=== PATIENT | male | born 1970 | race African-American/Black ===

== ENCOUNTER 2024-10-26 07:41 | Inpatient (IN) | payer MEDICAID, OTHER ==
[~2024-10-26] VITALS: Ht 182.9 cm; Wt 69.5 kg
--- NOTE | 2024-10-26 07:56 | ED.PDOC ---
History of Present Illness HPI Comments 54-year-old male brought by paramedics because of bright red blood per rectum he noticed since yesterday. He states that he had similar symptom five years ago for which she was diagnosed with diverticulitis. Denies abdominal pain nausea vomiting. Painless rectal bleeding. History of hypertension for which he takes amlodipine. Vitals stable upon arrival. Denies any other symptoms. Chief Complaint: GI Bleed Time Seen by MD: 07:45 Primary Care Provider: JESI GRANT Reviewed Notes: Nurses Notes, Medications, Allergies Allergies: Coded Allergies: NO KNOWN ALLERGIES (Unverified , 02/24/17) Home Meds No Active Prescriptions or Reported Meds Information Source: Patient, Emergency Med Personnel Mode of Arrival: EMS Severity: Moderate Timing: Days Duration: Since onset Past Medical History PAST MEDICAL HISTORY: HTN Surgical History: Denies all surgeries Social History Smoker: Non-Smoker Alcohol: Denies ETOH Use Drugs: Denies Drug Use Constitutional: denies: chills, diaphoresis, fatigue, fever, malaise, sweats, weakness, others EENTM: denies: blurred vision, double vision, ear bleeding, ear discharge, ear drainage, ear pain, ear ringing, eye pain, eye redness, hearing loss, mouth pain, mouth swelling, nasal discharge, nose bleeding, nose congestion, nose pain, photophobia, tearing, throat pain, throat swelling, voice changes, others Respiratory: denies: cough, hemoptysis, orthopnea, SOB at rest, shortness of breath, SOB with excertion, stridor, wheezing, others Cardiovascular: denies: chest pain, dizzy spells, diaphoresis, Dyspnea on exertion, edema, irregular heart beat, left arm pain, lightheadedness, palpitations, PND, syncope, others Gastrointestinal: reports: rectal bleeding; denies: abdomen distended, abdominal pain, blood streaked bowels, constipated, diarrhea, dysphagia, difficulty swallowing, hematemesis, melena, nausea, poor appetite, poor fluid intake, rectal pain, vomiting, others Genitourinary: denies: burning, dysuria, flank pain, frequency, hematuria, incontinence, penile discharge, penile sore, pain, testicle pain, testicle swelling, urgency, others Neurological: denies: dizziness, fainting, headache, left sided numbness, left sided weakness, numbness, paresthesia, pre-existing deficit, right sided numbness, right sided weakness, seizure, speech problems, tingling, tremors, weakness, others Musculoskeletal: denies: back pain, gout, joint pain, joint swelling, muscle pain, muscle stiffness, neck pain, others Integumetry: denies: bruises, change in color, change in hair/nails, dryness, laceration, lesions, lumps, rash, wounds, others Allergic/Immunocompromised: denies: Difficulty Healing, Frequent Infections, Hives, Itching, others Hematologic/Lymphatic: denies: anemia, blood clots, easy bleeding, easy bruising, swollen glands, others Endocrine: denies: excessive hunger, excessive sweating, excessive thirst, excessive urination, flushing, intolerance to cold, intolerance to heat, unexplained weight gain, unexplained weight loss, others Psychiatric: denies: anxiety, bipolar disorder, depression, hopeless, panic disorder, schizophrenia, sleepless, suicidal, others Physical Exam General Appearance: Moderate Distress HEENT: Normal ENT Inspection, Pharynx Normal, TMs Normal Neck: Full Range of Motion, Non-Tender, Normal, Normal Inspection Respiratory: Chest Non-Tender, Lungs Clear, No Accessory Muscle Use, No Respiratory Distress, Normal Breath Sounds Cardiovascular: No Edema, No JVD, No Murmur, No Gallop, Normal Peripheral Pulses, Regular Rate/Rhythm Breast Exam: Deferred Gastrointestinal: No Organomegaly, Non Tender, No Pulsatile Mass, Normal Bowel Sounds, Soft Genitalia: Deferred Pelvic: Deferred Rectal: Deferred Extremities: No calf tenderness, Normal capillary refill, Normal inspection, Normal range of motion, Non-tender, No pedal edema Musculoskeletal : Apperance: Normal Neurologic: Alert, advanced developer II-XII nml as Tested, No Motor Deficits, Normal Affect, Normal Mood, No Sensory Deficits Cerebellar Function: NOT DONE Reflexes: NOT DONE Skin: Dry, Normal Color, Warm Peripheral Pulses: 3+ Radial (R), 3+ Radial (L) Lymphatic: No Adenopathy Was a procedure done? Was a procedure done?: No Differential Dx Considerations may include: Diverticulitis Hemorrhoid X-Ray, Labs, Meds, VS Vital Signs Date Time Temp Pulse Resp B/P (MAP) Pulse Ox O2 Delivery O2 Flow Rate FiO2 10/26/24 08:12 97.7 113 17 148/86 (106) 99 97.7 5/11/25 08:12 Room Air* 0 21 10/26/24 07:42 97.7 108 16 114/79 (91) 100 97.7 Lab Test 10/26/24 07:55 Range/Units White Blood Count 6.8 4.4-10.8 10^3/uL Red Blood Count 2.56 L 4.5-5.90 10^6/uL Hemoglobin 9.2 L 13.5-17.5 g/dL Hematocrit 26.6 L 41.0-53.0 % Mean Corpuscular Volume 103.6 H 80.0-100.0 fL Mean Corpuscular Hemoglobin 35.7 H 28.0-32.0 pg Mean Corpuscular Hemoglobin Concent 34.5 32.0-36.0 g/dL Red Cell Distribution Width 12.0 11.8-14.3 % Platelet Count 273 140-450 10^3/uL Mean Platelet Volume 6.4 L 6.9-10.8 fL Neutrophils (%) (Auto) 60.7 37.0-80.0 % Lymphocytes (%) (Auto) 26.7 10.0-50.0 % Monocytes (%) (Auto) 9.6 0.0-12.0 % Eosinophils (%) (Auto) 1.9 0.0-7.0 % Basophils (%) (Auto) 1.1 0.0-2.0 % Neutrophils # (Auto) 4.1 1.6-8.6 10 ^3/uL Lymphocytes # (Auto) 1.8 0.4-5.4 10 ^3/uL Monocytes # (Auto) 0.7 0-1.3 10 ^3/uL Eosinophils # (Auto) 0.1 0-0.8 10 ^3/uL Basophils # (Auto) 0.1 0-0.2 10 ^3/uL Nucleated Red Blood Cells 0.0 % Sodium Level 138 136-145 mmol/L Potassium Level 3.8 3.5-5.1 mmol/L Chloride Level 109 H 98-107 mmol/L Carbon Dioxide Level 26 20-31 mmol/L Anion Gap 3 L 5-15 Blood Urea Nitrogen 7 L 9-23 mg/dL Creatinine 0.80 0.700-1.30 mg/dL Glomerular Filtration Rate Calc 106 >90 mL/min BUN/Creatinine Ratio 8.8 L 10.0-20.0 Serum Glucose 99 74-106 mg/dL Calcium Level 9.2 8.7-10.4 mg/dL Current Medications Medications (Trade) Dose Ordered Sig/Jake Route Start Time Stop Time Status Last Admin Sodium Chloride 1,000 ml @ 1,000 mls/hr Q1H ONCE IV 10/26/24 08:00 10/26/24 08:59 DC 10/26/24 08:25 Patient alert. Complaining of bright red blood per rectum. Vitals stable. Answering questions. History of diverticulitis. Abdomen is soft. No sign of distress. Blood pressure is within normal limits. Possibly will need colonoscopy. GI consultation. Establish intravenous access. Was given fluids. Reviewed his history. Counseled patient on effects of smoking cigarettes for 15 minutes. Explained to the patient. Continue monitoring. [place] [id number] Ph: [phone] DIAGNOSTIC IMAGING Diagnostic Imaging Report : [id number] Signed PATIENT: SAMUEL HARGROVE ACCT: [id number] UNIT: [id number] : 1970 LOC: ER ROOM / BED: / AGE / SEX: 54 / M ADM STATUS: REG ER SERVICE [id number] ORDERING PHYSICIAN: CRISTIAN KANG MD PROCEDURE(s): ABPL - CT AB PEL WO CON-NO ORAL OR IV REASON: diverticulitis ORDER NUMBER(s): [id number], ACCESSION NUMBER(s): [id number] CT CT AB PEL WO CON-NO ORAL OR IV INDICATION: diverticulitis EXAM DATE: 10/26/2024 08:03 AM COMPARISON: None RADIATION DOSE: CTDIvol: 5.93 mGy, DLP: 314.4 mGy*cm PROCEDURE: Helical CT images were obtained of the abdomen and pelvis without IV contrast Sagittal and coronal reconstructions are provided. ORAL CONTRAST: None. ADDITIONAL IMAGES / REFORMATS: None All CT scans at this medical facility are performed using dose modulation techniques as appropriate to a performed exam including the following: Automated exposure control was utilized; adjustment of the MA and/or KV according to patient size; and use of iterative reconstruction technique. FINDINGS: LUNG BASE: Normal. LIVER: Normal. GALLBLADDER AND BILIARY TREE: No calcified gallstones. Normal caliber wall. No intra- or extrahepatic biliary ductal dilation. PANCREAS: Normal. SPLEEN: Normal. BOWEL: Severe colonic diverticulosis with mild pericolonic fat stranding along the descending hemicolon. Tubular appearance of the rectum and sigmoid could be seen with proctitis. Normal appendix. ADRENALS: Normal. KIDNEYS AND URETER: Normal. BLADDER: Normal. REPRODUCTIVE ORGANS: Normal. LYMPH NODES:No lymphadenopathy. PERITONEUM: No ascites or free air. No other fluid collection. VESSELS: Scattered atherosclerotic calcifications are noted. RETROPERITONEUM: Normal. ABDOMINAL WALL: Normal. BONES: Scattered osseous degenerative changes are noted. IMPRESSION: Severe colonic diverticulosis with mild pericolonic fat stranding along the descending hemicolon. Tubular appearance of the rectum and sigmoid could be seen with proctitis. ATED BY: RAMAKRISHNA WELLS MD DICTATED DATE/TIME: 10/26/24834 SIGNED BY: RAMAKRISHNA WELLS MD SIGNED DATE/TIME: 10/26/24834 CC: Time of 1ST Reevaluation: 07:54 Reevaluation 1ST: Unchanged Patient Education/Counseling: Diagnosis, Treatment, Prognosis Family Education/Counseling: No Family Present Departure 1 Departure Time of Disposition: 07:56 Impression: Primary Impression: GI bleed Qualified Codes: K92.2 - Gastrointestinal hemorrhage, unspecified Disposition: 09 ADMITTED INPATIENT Admit to: Med Surg Condition: Guarded e-Prescriptions No Active Prescriptions or Reported Meds Critical Care Note Critical Care Time?: No Stability Stability form required: No Heart Score Heart Score: Heart Score Response (Comments) Value History N/A 0 EKG N/A 0 Age N/A 0 Risk Factors N/A 0 Troponin N/A 0 Total 0 I personally scribed for CRISTIAN KANG MD ([email or web address]) on 10/26/24 at 09:14. Electronically submitted by Barry Tatum ([email or web address]). CRISTIAN KANG MD October 26, 2024 07:56
[2024-10-26] MEDS: SODIUM CHLORIDE 0.9% 1,000 ML IV ONE ×2 (08:00→08:25)
[2024-10-26 08:11] LABS: Basophils # (auto) 0.1 10 ^3/uL (0-0.2); Basophils % (auto) 1.1 % (0.0-2.0); Eosinophils # (auto) 0.1 10 ^3/uL (0-0.8); Eosinophils % (auto) 1.9 % (0.0-7.0); Hematocrit 26.6 % (41.0-53.0); Hemoglobin 9.2 g/dL (13.5-17.5); Lymphocytes # (auto) 1.8 10 ^3/uL (0.4-5.4); Lymphocytes % (auto) 26.7 % (10.0-50.0); Mean Corpuscular Hemoglobin 35.7 pg (28.0-32.0); Mean Corpuscular Hgb Conc. 34.5 g/dL (32.0-36.0); Mean Corpuscular Volume 103.6 fL (80.0-100.0); Monocytes # (auto) 0.7 10 ^3/uL (0-1.3); Monocytes % (auto) 9.6 % (0.0-12.0); Neutrophils # (auto) 4.1 10 ^3/uL (1.6-8.6); Neutrophils % (auto) 60.7 % (37.0-80.0); Platelet Count (auto) 273 10^3/uL (140-450); Red Blood Cells 2.56 10^6/uL (4.5-5.90); White Blood Cell 6.8 10^3/uL (4.4-10.8)
[2024-10-26 08:14] LABS: Potassium 3.8 mmol/L (3.5-5.1); Sodium 138 mmol/L (136-145)
[2024-10-26 08:15] LABS: Anion Gap 3 (5-15); Calcium 9.2 mg/dL (8.7-10.4); Carbon Dioxide 26 mmol/L (20-31)
[2024-10-26 08:17] LABS: Chloride 109 mmol/L (98-107)
[2024-10-26 08:20] LABS: BUN/Creatinine Ratio 8.8 (10.0-20.0); Glucose 99 mg/dL (74-106)
[2024-10-26 08:29] LABS: Blood Urea Nitrogen 7 mg/dL (9-23)
--- NOTE | 2024-10-26 08:37 | DVH ---
CT CT AB PEL WO CON-NO ORAL OR IV INDICATION: diverticulitis EXAM DATE: 10/26/2024 08:03 AM COMPARISON: None RADIATION DOSE: CTDIvol: 5.93 mGy, DLP: 314.4 mGy*cm PROCEDURE: Helical CT images were obtained of the abdomen and pelvis without IV contrast Sagittal and coronal reconstructions are provided. ORAL CONTRAST: None. ADDITIONAL IMAGES / REFORMATS: None All C T scans at this medical facility are performed using dose modulation techniques as appropriate to a p erformed exam including the following: Automated exposure control was utilized; adjustment of the MA and/or KV according to patient size; and use of iterative reconstruction technique. FINDINGS: LUNG BASE: Normal. LIVER: Normal. GALLBLADDER AND BILIARY TREE: No calcified gallstones. Normal caliber wall. No intra- or extrahepatic biliary ductal dilation. PANCREAS: Normal. SPLEEN: Normal. BOWEL: Severe colonic diverticulosis with mild pericolonic fat stranding along the descending hemicol on. Tubular appearance of the rectum and sigmoid could be seen with proctitis. Normal appendix. ADRENALS: Normal. KIDNEYS AND URETER: Normal. BLADDER: Normal. REPRODUCTIVE ORGANS: Normal. LYMPH NODES:No lymphadenopathy. PERITONEUM: No ascites or free air. No other fluid collection. VESSELS: Scattered atherosclerotic calcifications are noted. RETROPERITONEUM: Normal. ABDOMINAL WALL: Normal. BONES: Scattered osseous degenerative changes are noted. IMPRESSION: Severe colonic diverticulosis with mild pericolonic fat stranding along the descending hemicolon. Tub ular appearance of the rectum and sigmoid could be seen with proctitis.
[2024-10-26] MEDS ORDERED: HYDROcodone-ACET 5/325MG TAB PO PRN (11:00)
[2024-10-26] MEDS ORDERED: hydrALAZINE HCL 20 MG/ML VL IV PRN (11:00)
[2024-10-26] MEDS ORDERED: ACETAMINOPHEN 325 MG TAB PO PRN (11:00)
[2024-10-26] MEDS ORDERED: MORPHINE SULFATE INJ 2 MG/ml SYRG IV PRN (11:00)
[2024-10-26] MEDS ORDERED: ONDANSETRON HCL 4 MG/2 ML VIAL IV PRN (11:00)
[2024-10-26 11:02] LABS: Urine Bacteria None Seen /hpf (None Seen)
[2024-10-26] MEDS ORDERED: AMLO1TAB23 PO (11:03)
[2024-10-26 11:10] LABS: Urine Blood Negative /uL (Negative); Urine Clarity Clear (Clear); Urine Color Light-Yellow (Yellow); Urine Protein, UAD Negative (Negative); Urine Specific Gravity 1.015 (1.001-1.035); Urine Squamous Epithelial Cell FEW /hpf (<5); Urine Urobilinogen Normal (Negative); Urine WBC 1 /HPF (0-3); Urine pH 6.5 (5.0-9.0)
--- NOTE | 2024-10-26 11:21 | DVHHP2 ---
History of Present Illness Reason for Visit: GI bleed History of Present Illness This 54-year-old male presents in the ED via EMS with a chief complaint GI bleed. The patient reports bright red stools started yesterday. The patient states history of GI bleed s/p colonoscopy in 2017 where he was found to have internal hemorrhoids and diffuse diverticulosis Three of them in the sigmoid colon were clipped because suspicious of bleeding. The patient denies fever, nausea, vomiting, or abdominal pain. Past medical history of hypertension, PUD, GI bleed status post blood transfusion, internal hemorrhoids, tobacco and marijuana use. Past Medical History As stated in HPI Past Surgical History Colonoscopy EGD Family History Reviewed, non-contributory to the management of this case. Smoke: <1 pack per day Drugs: Marijuana Review of Systems Constitutional: Yes: Malaise; No: Fever, Chills, Sweats, Weakness, Other Eyes: No: Pain, Vision change, Conjunctivae inflammation, Eyelid inflammation, Other, Redness ENT: No: Ear pain, Ear discharge, Nose pain, Nose discharge, Nose congestion, Mouth pain, Mouth swelling, Throat pain, Throat swelling, Other Respiratory: No: Cough, Dry, Shortness of breath, SOB with excertion, Wheezing, Hemoptysis, Pleuritic Pain, Sputum, Wheezing, Other Cardiovascular: No: Chest Pain, Palpitations, Orthopnea, Paroxysmal Noc. Dyspnea, Edema, Lt Headedness, Other Gastrointestinal: Melena, Other (Bright red blood in stools); No: Nausea, Vomiting, Abdominal Pain, Diarrhea, Constipation, Hematochezia Genitourinary: No Dysuria, No Frequency, No Incontinence, No Hematuria, No Retention, No Other Musculoskeletal: No: other, neck pain, shoulder pain, arm pain, back pain, hand pain, leg pain, foot pain Skin: No: Rash, Lesions, Jaundice, Bruising, Other Neurological: No: Weakness, Numbness, Incoordination, Change in speech, Confusion, Seizures, Other Allergies: Coded Allergies: NO KNOWN ALLERGIES (Unverified , 02/24/17) Exam Vital Signs Vital Signs Date Time Temp Pulse Resp B/P (MAP) Pulse Ox O2 Delivery O2 Flow Rate FiO2 10/26/24 08:12 97.7 113 17 148/86 (106) 99 97.7 10/26/24 08:12 Room Air* 0 21 General Appearance: Alert, Oriented X3, Cooperative, mild distress HEENT: Atraumatic, PERRLA Respiratory: Clear to auscultation, Normal air movement Cardiovascular: Regular rate, Normal S1, Normal S2 Abdominal: Normal bowel sounds, Soft, No tenderness Extremities: No clubbing, No cyanosis Skin: No rashes, No breakdown Neuro: Normal gait Psych/Mental Status: Mental status NL Labs/Xrays Labs Test 10/26/24 10:48 10/26/24 07:55 Range/Units White Blood Count 6.8 4.4-10.8 10^3/uL Red Blood Count 2.56 L 4.5-5.90 10^6/uL Hemoglobin 9.2 L 13.5-17.5 g/dL Hematocrit 26.6 L 41.0-53.0 % Mean Corpuscular Volume 103.6 H 80.0-100.0 fL Mean Corpuscular Hemoglobin 35.7 H 28.0-32.0 pg Mean Corpuscular Hemoglobin Concent 34.5 32.0-36.0 g/dL Red Cell Distribution Width 12.0 11.8-14.3 % Platelet Count 273 140-450 10^3/uL Mean Platelet Volume 6.4 L 6.9-10.8 fL Neutrophils (%) (Auto) 60.7 37.0-80.0 % Lymphocytes (%) (Auto) 26.7 10.0-50.0 % Monocytes (%) (Auto) 9.6 0.0-12.0 % Eosinophils (%) (Auto) 1.9 0.0-7.0 % Basophils (%) (Auto) 1.1 0.0-2.0 % Neutrophils # (Auto) 4.1 1.6-8.6 10 ^3/uL Lymphocytes # (Auto) 1.8 0.4-5.4 10 ^3/uL Monocytes # (Auto) 0.7 0-1.3 10 ^3/uL Eosinophils # (Auto) 0.1 0-0.8 10 ^3/uL Basophils # (Auto) 0.1 0-0.2 10 ^3/uL Nucleated Red Blood Cells 0.0 % Sodium Level 138 136-145 mmol/L Potassium Level 3.8 3.5-5.1 mmol/L Chloride Level 109 H 98-107 mmol/L Carbon Dioxide Level 26 20-31 mmol/L Anion Gap 3 L 5-15 Blood Urea Nitrogen 7 L 9-23 mg/dL Creatinine 0.80 0.700-1.30 mg/dL Glomerular Filtration Rate Calc 106 >90 mL/min BUN/Creatinine Ratio 8.8 L 10.0-20.0 Serum Glucose 99 74-106 mg/dL Calcium Level 9.2 8.7-10.4 mg/dL PROCEDURE(s): ABPL - CT AB PEL WO CON-NO ORAL OR IV REASON: diverticulitis ORDER NUMBER(s): [id number], ACCESSION NUMBER(s): [id number] CT CT AB PEL WO CON-NO ORAL OR IV INDICATION: diverticulitis EXAM DATE: 10/26/2024 08:03 AM COMPARISON: None RADIATION DOSE: CTDIvol: 5.93 mGy, DLP: 314.4 mGy*cm PROCEDURE: Helical CT images were obtained of the abdomen and pelvis without IV contrast Sagittal and coronal reconstructions are provided. ORAL CONTRAST: None. ADDITIONAL IMAGES / REFORMATS: None All CT scans at this medical facility are performed using dose modulation techniques as appropriate to a performed exam including the following: Automated exposure control was utilized; adjustment of the MA and/or KV according to patient size; and use of iterative reconstruction technique. FINDINGS: LUNG BASE: Normal. LIVER: Normal. GALLBLADDER AND BILIARY TREE: No calcified gallstones. Normal caliber wall. No intra- or extrahepatic biliary ductal dilation. PANCREAS: Normal. SPLEEN: Normal. BOWEL: Severe colonic diverticulosis with mild pericolonic fat stranding along the descending hemicolon. Tubular appearance of the rectum and sigmoid could be seen with proctitis. Normal appendix. ADRENALS: Normal. KIDNEYS AND URETER: Normal. BLADDER: Normal. REPRODUCTIVE ORGANS: Normal. LYMPH NODES:No lymphadenopathy. PERITONEUM: No ascites or free air. No other fluid collection. VESSELS: Scattered atherosclerotic calcifications are noted. RETROPERITONEUM: Normal. ABDOMINAL WALL: Normal. BONES: Scattered osseous degenerative changes are noted. IMPRESSION: Severe colonic diverticulosis with mild pericolonic fat stranding along the descending hemicolon. Tubular appearance of the rectum and sigmoid could be seen with proctitis. Assessment/Plan Assessment/Plan # Rule out GI Bleed # severe colonic diverticulosis # proctitis # hx of GI bleed s/p colonoscopy in 2017 # hx of internal hemorrhoids # hx of GI bleed s/p blood transfusion # hx of PUd Admit to Med/Surg unit Protonix b.i.d. FOBT Clear liquid diet GI consult # Hypertension continue with amlodipine Hydralazine as needed Monitor # tobacco use 1/2 PPD # marijuana use Nicotine patch Smoking cessation and marijuana use counseled Medical plan discussed with patient Plan discussed with: Patient My Orders Orders - AMANUEL BRIZUELA Procedure Category Date Status Time Admit ADMIT 10/26/24 Verified 10:57 Code Status CODE 10/26/24 Verified 10:57 0.9% Ns 1000 Ml PHA 10/26/24 Verified 11:00 Hydrocodone-Acet PHA 10/26/24 Verified 5/325mg Tab ([place] 11:00 Ondansetron Hcl PHA 10/26/24 Verified (Zofran) 11:00 Complete Blood Count LAB 10/27/24 Verified 04:00 Comprehensive LAB 10/27/24 Verified Metabolic Panel 04:00 Condition: Fair NORMA 10/26/24 Verified 10:57 Acetaminophen Tablet PHA 10/26/24 Verified (Tylenol Tablet) 11:00 Clear Liq Diet DIET 10/26/24 Verified Lunch Morphine Sulfate PHA 10/26/24 Verified Injection 11:00 * Gi Dvh Copyright Manager CONS 10/26/24 Verified 10:57 Sequential NORMA 10/26/24 Verified Compression Device 10:57 Pantoprazole PHA 10/26/24 Verified (Protonix) 22:00 Date of Service: October 26, 2024 Billing Provider: AMANUEL BRIZUELA Common Visit Codes: 26846-WIGOGKM INP/OBS CARE (HIGH) Consultation Codes: 19828-GCAGOVPOD CONSULT <45MIN AMANUEL BRIZUELA October 26, 2024 11:21
[2024-10-26] MEDS: amLODIPine BESYLATE 5 MG TAB PO SCH (12:01)
[2024-10-26] MEDS: NICOTINE 7MG/24HR TOPICAL PATCH TD ONE (12:35)
[2024-10-26] MEDS: SODIUM CHLORIDE 0.9% 1,000 ML IV SCH (15:10)
[2024-10-26 17:36] VITALS: BP 102/60; PULSE 84; RESP 16; TEMP 98.6; O2SAT 98
[2024-10-26 20:00] VITALS: PULSE 101; RESP 18; O2SAT 99
[2024-10-26 21:00] VITALS: BP 106/72; PULSE 101; RESP 18; TEMP 98.4; O2SAT 99
[2024-10-26] MEDS: PANTOPRAZOLE 40 MG/10 ML VIAL INJ IV SCH (21:18)
[2024-10-27] VITALS (13 sets, daily range): BP systolic 98–121; BP diastolic 63–86; PULSE 92–111; RESP 16–20; TEMP 97.9–98.6; O2SAT 95–100
[2024-10-27 07:57] LABS: Alanine Aminotransferase 15 U/L (7-40); Alkaline Phosphatase 50 U/L (46-116); Anion Gap 3 (5-15); Aspartate Aminotransferase 12 U/L (13-40); Blood Urea Nitrogen 7 mg/dL (9-23); Calcium 8.7 mg/dL (8.7-10.4); Carbon Dioxide 24 mmol/L (20-31); Chloride 113 mmol/L (98-107); Glucose 91 mg/dL (74-106); Sodium 140 mmol/L (136-145)
[2024-10-27 07:58] LABS: Bilirubin, Total 0.5 mg/dL (0.2-1.0)
[2024-10-27 08:04] LABS: Eosinophils # (auto) 0.1 10 ^3/uL (0-0.8); Monocytes # (auto) 0.7 10 ^3/uL (0-1.3); Neutrophils # (auto) 3.1 10 ^3/uL (1.6-8.6)
[2024-10-27 08:08] LABS: Basophils # (auto) 0.1 10 ^3/uL (0-0.2); Basophils % (auto) 0.9 % (0.0-2.0); Eosinophils % (auto) 1.8 % (0.0-7.0); Hematocrit 15.6 % (41.0-53.0); Lymphocytes # (auto) 1.6 10 ^3/uL (0.4-5.4); Lymphocytes % (auto) 28.4 % (10.0-50.0); Mean Corpuscular Hemoglobin 35.9 pg (28.0-32.0); Mean Corpuscular Hgb Conc. 34.3 g/dL (32.0-36.0); Mean Corpuscular Volume 104.5 fL (80.0-100.0); Monocytes % (auto) 12.2 % (0.0-12.0); Neutrophils % (auto) 56.7 % (37.0-80.0); Nucleated Red Blood Cells % 0.1 %; Platelet Count (auto) 207 10^3/uL (140-450); Red Blood Cells 1.49 10^6/uL (4.5-5.90); White Blood Cell 5.5 10^3/uL (4.4-10.8)
[2024-10-27 08:18] LABS: Hemoglobin 5.4 g/dL (13.5-17.5)
[2024-10-27] MEDS: NICOTINE 7MG/24HR TOPICAL PATCH TD SCH (09:24)
[2024-10-27 09:51] LABS: INR 1.02 (0.9-1.15); Partial Thromboplastin Time 27.1 SEC (24.5-34.5); Prothrombin Time 10.8 sec (9.3-11.8)
[2024-10-27] MEDS ORDERED: PANTOPRAZOLE 40 MG/10 ML VIAL INJ IV SCH (10:00)
--- NOTE | 2024-10-27 13:10 | DVHINCON2 ---
GI Consult Consult Note GI consult note Date of Consultation: 10/27/2024 Chief Complaint: GI bleed Referring Physician: Dr. Arias H&P: 54-year-old male presents to ER with chief complaints of hematochezia. Patient had multiple episodes of red blood rectally starting one day ago. Similar symptoms in 2017, status post colonoscopy with Dr. Granger with diffuse diverticulosis. Patient denies abdominal pain. No nausea or vomiting. Denies hematemesis. No blood thinners or NSAID use. Patient admits to heavy alcohol use he drinks about 12-16 beers per day, and has stopped drinking two weeks ago. Patient gives history of heavy alcohol use for many years, and stopped drinking for one month every year Past Medical History: Denies Past Surgical History: Denies Social History: NO smoking, heavy drinking ETOH Positive marijuana Family History: Noncontributory Review of Systems: Constitutional: no fever, chill, weight loss HEENT: no eye pain, no hearing loss, no oral lesion, no scleral icterus Heart: no chest pain, no chest pressure Lung: no cough, no dyspnea with exertion Abdomen: see HPI Physical exam: General: NAD, AAOX3 Chest: lung muñoz clear to auscultation Heart: RRR, no murmur Abdomen: non-distended, no tenderness to palpation, +BS Labs: Labs Test 10/27/24 09:19 10/27/24 06:30 10/26/24 10:48 Range/Units Prothrombin Time 10.8 9.3-11.8 sec Prothrombin Time INR 1.02 0.9-1.15 Activated Partial Thromboplast Time 27.1 24.5-34.5 SEC White Blood Count 5.5 4.4-10.8 10^3/uL Red Blood Count 1.49 L 4.5-5.90 10^6/uL Hemoglobin 5.4 #*L 13.5-17.5 g/dL Hematocrit 15.6 #L 41.0-53.0 % Mean Corpuscular Volume 104.5 H 80.0-100.0 fL Mean Corpuscular Hemoglobin 35.9 H 28.0-32.0 pg Mean Corpuscular Hemoglobin Concent 34.3 32.0-36.0 g/dL Red Cell Distribution Width 12.0 11.8-14.3 % Platelet Count 207 140-450 10^3/uL Mean Platelet Volume 6.8 L 6.9-10.8 fL Neutrophils (%) (Auto) 56.7 37.0-80.0 % Lymphocytes (%) (Auto) 28.4 10.0-50.0 % Monocytes (%) (Auto) 12.2 H 0.0-12.0 % Eosinophils (%) (Auto) 1.8 0.0-7.0 % Basophils (%) (Auto) 0.9 0.0-2.0 % Neutrophils # (Auto) 3.1 1.6-8.6 10 ^3/uL Lymphocytes # (Auto) 1.6 0.4-5.4 10 ^3/uL Monocytes # (Auto) 0.7 0-1.3 10 ^3/uL Eosinophils # (Auto) 0.1 0-0.8 10 ^3/uL Basophils # (Auto) 0.1 0-0.2 10 ^3/uL Nucleated Red Blood Cells 0.1 % Sodium Level 140 136-145 mmol/L Potassium Level 4.0 3.5-5.1 mmol/L Chloride Level 113 H 98-107 mmol/L Carbon Dioxide Level 24 20-31 mmol/L Anion Gap 3 L 5-15 Blood Urea Nitrogen 7 L 9-23 mg/dL Creatinine 0.70 0.700-1.30 mg/dL Glomerular Filtration Rate Calc 110 >90 mL/min BUN/Creatinine Ratio 10.0 10.0-20.0 Serum Glucose 91 74-106 mg/dL Calcium Level 8.7 8.7-10.4 mg/dL Total Bilirubin 0.5 0.2-1.0 mg/dL Aspartate Amino Transferase (AST) 12 L 13-40 U/L Alanine Aminotransferase (ALT) 15 7-40 U/L Alkaline Phosphatase 50 46-116 U/L Total Protein 5.0 L 5.7-8.2 g/dL Albumin 3.0 L 3.2-4.8 g/dL Urine Color Light-yellow Yellow Urine Clarity Clear Clear Urine pH 6.5 5.0-9.0 Urine Specific [place] 1.015 1.001-1.035 Urine Protein Negative Negative Urine Ketones Negative Negative Urine Blood Negative Negative /uL Urine Nitrite Negative Negative Urine Bilirubin Negative Negative Urine Urobilinogen Normal Negative mg/dL Urine Leukocyte Esterase Negative Negative /uL Urine RBC <1 0 - 3 /hpf Urine Microscopic WBC 1 0-3 /HPF Urine Squamous Epithelial Cells Few <5 /hpf Urine Bacteria None seen None Seen /hpf Urine Glucose Normal Normal mg/dL Stool Occult Blood Positive Negative Stool Occult Blood Sample #3 Negative Imaging: CT abdomen pelvis IMPRESSION: Severe colonic diverticulosis with mild pericolonic fat stranding along the descending hemicolon. Tubular appearance of the rectum and sigmoid could be seen with proctitis. Assessment: GI bleed Severe anemia Severe colonic diverticulosis Plan: Discussed with Dr. Rizo Patient is being transfused 1st unit of PRBCs Monitor labs transfuse if hemoglobin less than seven Recommend 1 unit of FFP Protonix Ice chips, advance to clear liquid diet if tolerating We will re-evaluate patient for possible colonoscopy when stable Discussed plan with patient RN Thank you for this consult Date of Service: October 27, 2024 Billing Provider: KAE KENNEDY Common Visit Codes: CONSULT ONLY Consultation Codes: [id number] CONSULT <60MIN KAE KENNEDY October 27, 2024 13:10
--- NOTE | 2024-10-27 14:45 | DVHPNRES ---
Progress Note Date Seen: October 27, 2024 Resident Creating Document: LORIJKARMA BrittonANGEL RESIDENT Medical Necessity Reason Pt with a Central, PICC or Fol: No Subjective Review of Systems Patient is a 64-year-old male with a past medical history of hypertension, lower GI bleed, internal hemorrhoids presented to the ED with a chief complaint of bloody stools. Patient reports he was apparently well until Sunday when he started having bloody stools, 5 episodes and 1 episode of bloody stool on Sunday following which she came to the hospital for further evaluation. He reports the stools were pure red blood and no associated stool. Patient reported that he had a similar episode in 2017 when he was admitted to the hospital and underwent a colonoscopy which showed diverticulosis with the suspicion of bleeding and internal hemorrhoids. Patient has not had any episode of blood in stool since 2017 up to now. Past medical history: As per HPI Past surgical history: Colonoscopy in 2017 Social history: Patient is a current smoker with a 20 pack year smoking history, smokes marijuana and 12 pack of beer daily until 2 weeks ago Home medications: Amlodipine 10 mg daily Review of systems Reports last bowel movement last night with blood in stool In the morning hemoglobin was noted to be 5.4 g/dl 1 packed red blood cells was given Patient complaint of shortness of breath, abdominal pain Objective vital signs Vital Sign Date Time Temp Pulse Resp B/P (MAP) Pulse Ox O2 Delivery O2 Flow Rate FiO2 10/27/24 14:12 98.6 96 18 120/81 98.6 10/27/24 09:00 100 10/27/24 08:00 Room Air* 0 21 Total Intake and Output 10/26/24 10/26/24 10/27/24 15:00 23:00 07:00 Intake Total 1000 ml 400 ml Output Total 1000 ml Balance 1000 ml -600 ml medications Current Medications Medications Dose Ordered Sig/Jake Route Start Time Stop Time Status Last Admin Dose Admin Sodium Chloride 1,000 ml @ 100 mls/hr Q10H IV 10/26/24 11:00 10/26/24 21:18 100 MLS/HR Ondansetron HCl 4 mg Q4HP PRN IV 10/26/24 11:00 Pantoprazole Sodium 40 mg BID IV 10/26/24 22:00 10/27/24 09:24 40 MG Nicotine 1 patch DAILY TD 10/27/24 10:00 Examination Constitutional: Patient is alert and oriented to time, place and person and does not appear to be in any acute distress Gen - mild conjunctival pallor, no icterus, no cyanosis, no clubbing, no LAD, no edema . Skin - Patients skin is warm and dry.. HEENT - normocephalic, atraumatic, moist mucous membranes. Neck - full ROM, no LAD, no JVD. Pulmonary - B/L equal breath sounds. no crackles , no wheezing, no stridor. cardiovascular - regular S1,S2 heard, no added sounds, no murmurs heard. GI - soft, nontender abdomen. no hepatospleenomegaly. Bowel sounds active Neurological - Bilateral upper extremity strength 5/5, bilateral lower extremity strength 5/5, no facial droop, normal speech, no tremor, no sensory deficiets. laboratory and microbiology Laboratory Tests 10/27/24 06:30 Test 10/27/24 06:30 Range/Units Serum Glucose 91 74-106 mg/dL Problem List/Assessment/Plan Problem List/Assessment/Plan Acute lower GI bleed Colonic diverticulosis ?proctitis Severe anemia likely due to GI blood loss - CT abdomen pelvis shows Severe colonic diverticulosis with mild pericolonic fat stranding along the descending hemicolon. Tubular appearance of the rectum and sigmoid could be seen with proctitis - 1 unit of PRBC given - monitor H&H - Protonix b.i.d. - GI on board Hypertensive heart disease - blood pressure normal currently, no medication Polysubstance use - advised to quit smoking, marijuana use - patient is a heavy alcoholic with a 12 pack beer a day, stopped 2 weeks ago, no withdrawal Goals of care discussed with the patient for over 27 minutes. Full code Plan discussed with Dr. Shaw Plan discussed with: Patient My Orders My Orders Orders - SUNNY JAIN Procedure Category Date Status Time Transfer Orders XFER 10/27/24 Transmitted 10:57 Complete Blood Count LAB 10/27/24 Logged 16:00 Date of Service: October 27, 2024 Billing Provider: YING SHAW MD Common Visit Codes: [id number] INP/OBS CARE(HIGH) SUNNY JAIN RESIDENT October 27, 2024 14:45 YING SHAW MD October 31, 2024 10:20
[2024-10-27 16:44] LABS: Eosinophils # (auto) 0.1 10 ^3/uL (0-0.8); Eosinophils % (auto) 1.7 % (0.0-7.0); Monocytes # (auto) 0.8 10 ^3/uL (0-1.3)
[2024-10-27 16:45] LABS: Basophils # (auto) 0.1 10 ^3/uL (0-0.2); Basophils % (auto) 0.8 % (0.0-2.0); Hematocrit 19.6 % (41.0-53.0); Lymphocytes # (auto) 1.8 10 ^3/uL (0.4-5.4); Lymphocytes % (auto) 28.1 % (10.0-50.0); Mean Corpuscular Hemoglobin 33.5 pg (28.0-32.0); Mean Corpuscular Hgb Conc. 33.8 g/dL (32.0-36.0); Monocytes % (auto) 12.9 % (0.0-12.0); Neutrophils # (auto) 3.5 10 ^3/uL (1.6-8.6); Neutrophils % (auto) 56.5 % (37.0-80.0); Platelet Count (auto) 209 10^3/uL (140-450); Red Blood Cells 1.98 10^6/uL (4.5-5.90); Red Cell Distribution Width 18.8 % (11.8-14.3); White Blood Cell 6.2 10^3/uL (4.4-10.8)
[2024-10-27 16:48] LABS: Hemoglobin 6.6 g/dL (13.5-17.5)
[2024-10-28] VITALS (12 sets, daily range): BP systolic 99–150; BP diastolic 47–88; PULSE 73–100; RESP 16–25; TEMP 92.3–98.8; O2SAT 90–100
[2024-10-28 06:38] LABS: Basophils # (auto) 0 10 ^3/uL (0-0.2); Eosinophils # (auto) 0.1 10 ^3/uL (0-0.8); Monocytes # (auto) 0.6 10 ^3/uL (0-1.3); White Blood Cell 5.4 10^3/uL (4.4-10.8)
[2024-10-28 06:42] LABS: Basophils % (auto) 0.7 % (0.0-2.0); Hematocrit 18.5 % (41.0-53.0); Lymphocytes # (auto) 1.6 10 ^3/uL (0.4-5.4); Lymphocytes % (auto) 28.6 % (10.0-50.0); Mean Corpuscular Hemoglobin 32.6 pg (28.0-32.0); Mean Corpuscular Hgb Conc. 34.9 g/dL (32.0-36.0); Mean Corpuscular Volume 93.3 fL (80.0-100.0); Monocytes % (auto) 11.4 % (0.0-12.0); Neutrophils # (auto) 3.1 10 ^3/uL (1.6-8.6); Neutrophils % (auto) 57.3 % (37.0-80.0); Nucleated Red Blood Cells % 0.2 %; Platelet Count (auto) 182 10^3/uL (140-450); Red Blood Cells 1.98 10^6/uL (4.5-5.90); Red Cell Distribution Width 19.4 % (11.8-14.3)
[2024-10-28 06:59] LABS: Hemoglobin 6.5 g/dL (13.5-17.5)
[2024-10-28 07:00] LABS: Anion Gap 6 (5-15); Carbon Dioxide 23 mmol/L (20-31); Sodium 139 mmol/L (136-145)
[2024-10-28 07:06] LABS: Calcium 7.8 mg/dL (8.7-10.4); Chloride 110 mmol/L (98-107); Glucose 91 mg/dL (74-106)
[2024-10-28 07:07] LABS: BUN/Creatinine Ratio 11.7 (10.0-20.0)
[2024-10-28 07:08] LABS: Blood Urea Nitrogen 9 mg/dL (9-23)
--- NOTE | 2024-10-28 12:11 | DVHPNRES ---
Progress Note Date Seen: October 28, 2024 Resident Creating Document: LORIJKARMA BrittonANGEL RESIDENT Medical Necessity Reason Pt with a Central, PICC or Fol: No Subjective Review of Systems Patient is a 64-year-old male with a past medical history of hypertension, lower GI bleed, internal hemorrhoids presented to the ED with a chief complaint of bloody stools. Patient reports he was apparently well until Sunday when he started having bloody stools, 5 episodes and 1 episode of bloody stool on Sunday following which she came to the hospital for further evaluation. He reports the stools were pure red blood and no associated stool. Patient reported that he had a similar episode in 2017 when he was admitted to the hospital and underwent a colonoscopy which showed diverticulosis with the suspicion of bleeding and internal hemorrhoids. Patient has not had any episode of blood in stool since 2017 up to now. Past medical history: As per HPI Past surgical history: Colonoscopy in 2017 Social history: Patient is a current smoker with a 20 pack year smoking history, smokes marijuana and 12 pack of beer daily until 2 weeks ago Home medications: Amlodipine 10 mg daily Review of systems Overnight patient reported 4 episode of bowel movements with blood In the morning hemoglobin was noted to be less than 7 g/dl 1 packed red blood cells was given Patient does not complaint of shortness of breath, abdominal pain Objective vital signs Vital Sign Date Time Temp Pulse Resp B/P (MAP) Pulse Ox O2 Delivery O2 Flow Rate FiO2 10/28/24 12:00 98.3 84 16 119/77 98.3 10/28/24 09:30 90 10/28/24 08:00 Room Air* 0 21 Total Intake and Output 10/27/24 10/27/24 10/28/24 15:00 23:00 07:00 Intake Total 960 ml 700 ml Balance 960 ml 700 ml medications Current Medications Medications Dose Ordered Sig/Jake Route Start Time Stop Time Status Last Admin Dose Admin Sodium Chloride 1,000 ml @ 100 mls/hr Q10H IV 10/26/24 11:00 10/28/24 03:00 100 MLS/HR Ondansetron HCl 4 mg Q4HP PRN IV 10/26/24 11:00 Pantoprazole Sodium 40 mg BID IV 10/26/24 22:00 10/28/24 11:03 40 MG Nicotine 1 patch DAILY TD 10/27/24 10:00 Examination Constitutional: Patient is alert and oriented to time, place and person and does not appear to be in any acute distress Gen - mild conjunctival pallor, no icterus, no cyanosis, no clubbing, no LAD, no edema . Skin - Patients skin is warm and dry.. HEENT - normocephalic, atraumatic, moist mucous membranes. Neck - full ROM, no LAD, no JVD. Pulmonary - B/L equal breath sounds. no crackles , no wheezing, no stridor. cardiovascular - regular S1,S2 heard, no added sounds, no murmurs heard. GI - soft, nontender abdomen. no hepatospleenomegaly. Bowel sounds active Neurological - Bilateral upper extremity strength 5/5, bilateral lower extremity strength 5/5, no facial droop, normal speech, no tremor, no sensory deficiets. laboratory and microbiology Laboratory Tests 10/28/24 04:51 Test 10/28/24 04:51 Range/Units Serum Glucose 91 74-106 mg/dL Problem List/Assessment/Plan Problem List/Assessment/Plan Acute lower GI bleed Colonic diverticulosis ?proctitis Severe anemia likely due to GI blood loss - CT abdomen pelvis shows Severe colonic diverticulosis with mild pericolonic fat stranding along the descending hemicolon. Tubular appearance of the rectum and sigmoid could be seen with proctitis - 3 units of PRBC given - monitor H&H - Protonix b.i.d. - patient is planned for colonoscopy tomorrow Hypertensive heart disease - blood pressure normal currently, no medication Polysubstance use - advised to quit smoking, marijuana use - patient is a heavy alcoholic with a 12 pack beer a day, stopped 2 weeks ago, no withdrawal Goals of care discussed with the patient for over 23 minutes. Full code Plan discussed with Dr. Shaw Plan discussed with: Patient Date of Service: October 28, 2024 Billing Provider: YING SHAW MD Common Visit Codes: [id number] INP/OBS CARE(HIGH) SUNNY JAIN October 28, 2024 12:11 YING SHAW MD November 03, 2024 22:55
[2024-10-28 18:29] LABS: Basophils # (auto) 0 10 ^3/uL (0-0.2); Eosinophils # (auto) 0.1 10 ^3/uL (0-0.8); Hemoglobin 7.6 g/dL (13.5-17.5); Lymphocytes # (auto) 1.7 10 ^3/uL (0.4-5.4); Nucleated Red Blood Cells % 0.1 %; White Blood Cell 7.2 10^3/uL (4.4-10.8)
[2024-10-28 18:31] LABS: Basophils % (auto) 0.6 % (0.0-2.0); Eosinophils % (auto) 1.8 % (0.0-7.0); Hematocrit 21.5 % (41.0-53.0); Lymphocytes % (auto) 23.2 % (10.0-50.0); Mean Corpuscular Hemoglobin 32.9 pg (28.0-32.0); Mean Corpuscular Hgb Conc. 35.2 g/dL (32.0-36.0); Mean Corpuscular Volume 93.4 fL (80.0-100.0); Monocytes # (auto) 0.8 10 ^3/uL (0-1.3); Monocytes % (auto) 11.6 % (0.0-12.0); Neutrophils # (auto) 4.5 10 ^3/uL (1.6-8.6); Neutrophils % (auto) 62.8 % (37.0-80.0); Platelet Count (auto) 184 10^3/uL (140-450); Red Cell Distribution Width 18.4 % (11.8-14.3)
[2024-10-28] MEDS: GOLYTELY 4L KIT PO ONE (20:50)
[2024-10-28] MEDS: MAGNESIUM CITRATE SOLUTION 300 ML BTL PO ONE (20:50)
--- NOTE | 2024-10-28 21:50 | DVHPN2 ---
Progress Note - Dictate Date Seen: October 28, 2024 Medical Necessity Reason Pt with a Central, PICC or Fol: No Subjective No further episode of bleeding Patient showed me a picture of moderate bright red blood per rectum with clots in the toilet bowl prior to admission Hemoglobin did drop down to 5.4. Patient has had 3 units of PRBC and his last hemoglobin was 7.6 Patient is tolerating a clear liquid diet vital signs Vital Sign Date Time Temp Pulse Resp B/P (MAP) Pulse Ox O2 Delivery O2 Flow Rate FiO2 10/28/24 17:00 97.9 100 25 150/88 (108) 95 97.9 10/28/24 08:00 Room Air* 0 21 Total Intake and Output 10/27/24 10/27/24 10/28/24 15:00 23:00 07:00 Intake Total 960 ml 700 ml Balance 960 ml 700 ml medications Current Medications Medications Dose Ordered Sig/Jake Route Start Time Stop Time Status Last Admin Dose Admin Sodium Chloride 1,000 ml @ 100 mls/hr Q10H IV 10/26/24 11:00 10/28/24 18:15 100 MLS/HR Ondansetron HCl 4 mg Q4HP PRN IV 10/26/24 11:00 Pantoprazole Sodium 40 mg BID IV 10/26/24 22:00 10/28/24 11:03 40 MG Nicotine 1 patch DAILY TD 10/27/24 10:00 objective General: NAD, AAOX3 Chest: lung muñoz clear to auscultation Heart: RRR, no murmur Abdomen: non-distended, no tenderness to palpation, +BS laboratory and microbiology Laboratory Tests 10/28/24 18:20 10/28/24 04:51 Test 10/28/24 04:51 Range/Units Serum Glucose 91 74-106 mg/dL Problems(with codes): (1) Rectal bleeding (2) GI bleed (3) Anemia Prognosis Plan Patient is requesting a colonoscopy re-evaluation His last colonoscopy was in 2016 when he had a similar episode He was diagnosed with diverticular disease and hemorrhoids at that time Patient stated he also had a colonoscopy about five years ago possibly at [facility] where they had removed some polyps Bowel prep tonight and schedule colonoscopy on 10/29/2024 Plan discussed with: Patient, Other (Nurse) АНДРЕЙ GOMEZ MD October 28, 2024 21:50
[2024-10-29] VITALS (9 sets, daily range): BP systolic 116–132; BP diastolic 79–93; PULSE 65–83; RESP 15–18; TEMP 97.4–98.6; O2SAT 97–100
[2024-10-29] MEDS: MAGNESIUM CITRATE SOLUTION 300 ML BTL PO ONE (05:17)
[2024-10-29] MEDS: GOLYTELY 4L KIT PO ONE (05:18)
[2024-10-29 07:31] LABS: Basophils # (auto) 0.1 10 ^3/uL (0-0.2); Basophils % (auto) 0.8 % (0.0-2.0); Eosinophils # (auto) 0.2 10 ^3/uL (0-0.8); Eosinophils % (auto) 2.9 % (0.0-7.0); Hematocrit 27.7 % (41.0-53.0); Hemoglobin 9.4 g/dL (13.5-17.5); Lymphocytes # (auto) 1.6 10 ^3/uL (0.4-5.4); Mean Corpuscular Hemoglobin 31.9 pg (28.0-32.0); Mean Corpuscular Hgb Conc. 33.9 g/dL (32.0-36.0); Mean Corpuscular Volume 94.1 fL (80.0-100.0); Monocytes # (auto) 0.8 10 ^3/uL (0-1.3); Monocytes % (auto) 10.9 % (0.0-12.0); Neutrophils # (auto) 4.5 10 ^3/uL (1.6-8.6); Neutrophils % (auto) 63.4 % (37.0-80.0); Nucleated Red Blood Cells % 0.2 %; Platelet Count (auto) 239 10^3/uL (140-450); Red Blood Cells 2.94 10^6/uL (4.5-5.90); Red Cell Distribution Width 18.5 % (11.8-14.3); White Blood Cell 7.2 10^3/uL (4.4-10.8)
[2024-10-29 07:45] LABS: Anion Gap 7 (5-15); Calcium 9.3 mg/dL (8.7-10.4); Carbon Dioxide 22 mmol/L (20-31); Potassium 3.8 mmol/L (3.5-5.1); Sodium 138 mmol/L (136-145)
[2024-10-29 07:51] LABS: Glucose 86 mg/dL (74-106)
[2024-10-29 07:55] LABS: BUN/Creatinine Ratio 6.2 (10.0-20.0); Blood Urea Nitrogen < 5 mg/dL (9-23); Chloride 109 mmol/L (98-107)
[2024-10-29] MEDS ORDERED: PROPOFOL 10 MG/ML 20 ML IV ONE (13:31)
[2024-10-29] MEDS ORDERED: LIDOCAINE 2% (LOCAL ANESTH.) PF 5ml SDV ONE (13:31)
--- NOTE | 2024-10-29 13:55 | DVHOP2 ---
Operative Report DATE OF OPERATION: 10/29/24 PROCEDURE: Diagnostic Colonoscopy. PREOPERATIVE INDICATION: The patient is a 54 -year-old male undergoing colonoscopy for rectal bleeding anemia POSTOPERATIVE DIAGNOSES: 1. Moderate scattered diverticular disease most prominent in the sigmoid and even ascending colon diverticular pockets were noted 2. 1+ internal hemorrhoids otherwise essentially completely normal colonoscopy examination up to the cecum and terminal ileum with no active bleeding at this time PROCEDURE PERFORMED BY: Андрей Rizo M.D. SCOPE: Olympus videocolonoscope. ASA CLASS: 2. PREOPERATIVE MEDICATIONS: Mac sedation, Barry Boone PROCEDURE IN DETAIL: After obtaining an informed consent, the patient was placed on left lateral decubitus position. He was then sedated with the above medications. A rectal examination was performed that was normal. The colonoscope was then passed through the anus into the rectosigmoid and through the descending, transverse, and ascending colon up to the cecum with visualization of the appendiceal orifice, base of the cecum and the ileocecal valve. The colonoscope was then withdrawn. The distal 3-5 cm of the terminal ileum were normal No polyps or masses were seen. There was no colitis and no fresh or old blood in the GI tract Patient had moderate scattered diverticular disease both in the ascending and the sigmoid colon. On retroflexion and straight on view he had trace to 1+ internal hemorrhoids which were not actively bleeding The patient tolerated the procedure well without difficulty. WITHDRAWAL TIME: 6 minutes QUALITY OF THE PREP: [place]upe Bowel Prep score: 9. COMPLICATIONS : None SPECIMENS: None DISPOSITION: Transfer back to the floor Stable PLAN: 1. Repeat colonoscopy in 10 years 2. Resume GI soft diet advance as tolerated 3. Increase fluid and fiber intake 4. Outpatient follow up with GI Services as needed 5. Patient may have had diverticular bleed that appears to have resolved, advised to avoid aspirin NSAIDs АНДРЕЙ RIZO MD October 29, 2024 13:55
[2024-10-29] MEDS ORDERED: LACT10SO3 PO (19:13)
[2024-10-29] MEDS ORDERED: AMLO1TAB22 PO (19:14)
--- NOTE | 2024-10-29 21:54 | DVHDSRES ---
Discharge Summary Date of Admission Resident Creating Document: SUNNY JAIN RESIDENT October 26, 2024 at 10:57 Date of Discharge: October 29, 2024 Admitting Diagnosis # Rule out GI Bleed # severe colonic diverticulosis # proctitis Wounds: none Labs/Diagnostic Data: Laboratory Results Test 10/29/24 06:17 10/27/24 09:19 10/27/24 06:30 10/26/24 10:48 White Blood Count 7.2 10^3/uL (4.4-10.8) Red Blood Count 2.94 10^6/uL (4.5-5.90) Hemoglobin 9.4 g/dL (13.5-17.5) Hematocrit 27.7 % (41.0-53.0) Mean Corpuscular Volume 94.1 fL (80.0-100.0) Mean Corpuscular Hemoglobin 31.9 pg (28.0-32.0) Mean Corpuscular Hemoglobin Concent 33.9 g/dL (32.0-36.0) Red Cell Distribution Width 18.5 % (11.8-14.3) Platelet Count 239 10^3/uL (140-450) Mean Platelet Volume 7.3 fL (6.9-10.8) Neutrophils (%) (Auto) 63.4 % (37.0-80.0) Lymphocytes (%) (Auto) 22.0 % (10.0-50.0) Monocytes (%) (Auto) 10.9 % (0.0-12.0) Eosinophils (%) (Auto) 2.9 % (0.0-7.0) Basophils (%) (Auto) 0.8 % (0.0-2.0) Neutrophils # (Auto) 4.5 10 ^3/uL (1.6-8.6) Lymphocytes # (Auto) 1.6 10 ^3/uL (0.4-5.4) Monocytes # (Auto) 0.8 10 ^3/uL (0-1.3) Eosinophils # (Auto) 0.2 10 ^3/uL (0-0.8) Basophils # (Auto) 0.1 10 ^3/uL (0-0.2) Nucleated Red Blood Cells 0.2 % Sodium Level 138 mmol/L (136-145) Potassium Level 3.8 mmol/L (3.5-5.1) Chloride Level 109 mmol/L (98-107) Carbon Dioxide Level 22 mmol/L (20-31) Anion Gap 7 (5-15) Blood Urea Nitrogen < 5 mg/dL (9-23) Creatinine 0.81 mg/dL (0.700-1.30) Glomerular Filtration Rate Calc 105 mL/min (>90) BUN/Creatinine Ratio 6.2 (10.0-20.0) Serum Glucose 86 mg/dL (74-106) Calcium Level 9.3 mg/dL (8.7-10.4) Prothrombin Time 10.8 sec (9.3-11.8) Prothrombin Time INR 1.02 (0.9-1.15) Activated Partial Thromboplast Time 27.1 SEC (24.5-34.5) Total Bilirubin 0.5 mg/dL (0.2-1.0) Aspartate Amino Transferase (AST) 12 U/L (13-40) Alanine Aminotransferase (ALT) 15 U/L (7-40) Alkaline Phosphatase 50 U/L (46-116) Total Protein 5.0 g/dL (5.7-8.2) Albumin 3.0 g/dL (3.2-4.8) Urine Color Light-yellow (Yellow) Urine Clarity Clear (Clear) Urine pH 6.5 (5.0-9.0) Urine Specific Irving 1.015 (1.001-1.035) Urine Protein Negative (Negative) Urine Ketones Negative (Negative) Urine Blood Negative /uL (Negative) Urine Nitrite Negative (Negative) Urine Bilirubin Negative (Negative) Urine Urobilinogen Normal mg/dL (Negative) Urine Leukocyte Esterase Negative /uL (Negative) Urine RBC <1 /hpf (0 - 3) Urine Microscopic WBC 1 /HPF (0-3) Urine Squamous Epithelial Cells Few /hpf (<5) Urine Bacteria None seen /hpf (None Seen) Urine Glucose Normal mg/dL (Normal) Stool Occult Blood Positive (Negative) Stool Occult Blood Sample #3 (Negative) Other Laboratory Tests 10/29/24 06:17 Brief Hx & Hospital Course: Patient is a 64-year-old male with a past medical history of hypertension, lower GI bleed, internal hemorrhoids presented to the ED with a chief complaint of bloody stools. Patient reports he was apparently well until Sunday when he started having bloody stools, 5 episodes and 1 episode of bloody stool on Sunday following which she came to the hospital for further evaluation. He reports the stools were pure red blood and no associated stool. Patient reported that he had a similar episode in 2017 when he was admitted to the hospital and underwent a colonoscopy which showed diverticulosis with the suspicion of bleeding and internal hemorrhoids. Patient has not had any episode of blood in stool since 2017 up to now. Past medical history: As per HPI Past surgical history: Colonoscopy in 2017 Social history: Patient is a current smoker with a 20 pack year smoking history, smokes marijuana and 12 pack of beer daily until 2 weeks ago Home medications: Amlodipine 10 mg daily Brief hospital course Patient admitted to the hospital with multiple episodes of bloody stools. While in the hospital he had low hemoglobin which he was given packed red blood cells and a total of 3 units of PRBC were given. Gastroenterology were consulted who recommended doing a colonoscopy Dr. hemoglobin stabilized. Endoscopy was done which showed diverticular disease in the sigmoid and even in the ascending colon, 1+ internal hemorrhoids otherwise normal colonoscopic examination up to the cecum and the terminal ileum and no active bleeding was noted. Patient's hemoglobin stabilized and was started on soft diet which he tolerated well without any nausea vomiting or abdominal pain. Patient was then sent home in the stable condition and advised to follow up in the discharge clinic in 1 week. Discharge plan Diet: Advised to increase fluid and fiber intake Avoid smoking and alcohol use Medications: Amlodipine 5 mg daily, lactulose p.r.n. for constipation Follow up in the discharge clinic in 1 week Consults/Reason for consult GI consultation for hematochezia Operations or Procedures Operative Report DATE OF OPERATION: 10/29/24 PROCEDURE: Diagnostic Colonoscopy. PREOPERATIVE INDICATION: The patient is a 54 -year-old male undergoing colonoscopy for rectal bleeding anemia POSTOPERATIVE DIAGNOSES: 1. Moderate scattered diverticular disease most prominent in the sigmoid and even ascending colon diverticular pockets were noted 2. 1+ internal hemorrhoids otherwise essentially completely normal colonoscopy examination up to the cecum and terminal ileum with no active bleeding at this time PROCEDURE PERFORMED BY: Андрей Rizo M.D. SCOPE: Olympus videocolonoscope. ASA CLASS: 2. PREOPERATIVE MEDICATIONS: Mac sedation, Barry Boone PROCEDURE IN DETAIL: After obtaining an informed consent, the patient was placed on left lateral decubitus position. He was then sedated with the above medications. A rectal examination was performed that was normal. The colonoscope was then passed through the anus into the rectosigmoid and through the descending, transverse, and ascending colon up to the cecum with visualization of the appendiceal orifice, base of the cecum and the ileocecal valve. The colonoscope was then withdrawn. The distal 3-5 cm of the terminal ileum were normal No polyps or masses were seen. There was no colitis and no fresh or old blood in the GI tract Patient had moderate scattered diverticular disease both in the ascending and the sigmoid colon. On retroflexion and straight on view he had trace to 1+ internal hemorrhoids which were not actively bleeding The patient tolerated the procedure well without difficulty. WITHDRAWAL TIME: 6 minutes QUALITY OF THE PREP: [place] Bowel Prep score: 9. COMPLICATIONS : None SPECIMENS: None DISPOSITION: Transfer back to the floor Stable PLAN: 1. Repeat colonoscopy in 10 years 2. Resume GI soft diet advance as tolerated 3. Increase fluid and fiber intake 4. Outpatient follow up with GI Services as needed 5. Patient may have had diverticular bleed that appears to have resolved, advised to avoid aspirin NSAIDs АНДРЕЙ RIZO MD October 29, 2024 13:55 Condition at Discharge: Good Final Diagnosis/Problems List Acute lower GI bleed Colonic diverticulosis ?proctitis Severe anemia likely due to GI blood loss Hypertensive heart disease Polysubstance use Discharge Disposition: Home Discharge Instruct/Medications Diet: See Comment Activity: No Restrictions, As Tolerated Follow Up/Referral: Follow up in the discharge clinic in one week Follow up with the PCP in 1-2 weeks Medications: as per EMR Discharge Statement: "Patient was advised to return to the ER or call 911 if any headaches, dizziness, shortness of breath, chest pain, abdominal pain, bleeding, fevers, or worsening of medical condition. Patient was counseled about treatment plan, medications, possible side effects, patientverbalized understanding. All questions were answered to the best of my ability. This discharge took greater then 30 minutes in planning, reviewing documentation, counseling the patient, and discussing with other team members." ASSESSMENT ASSESSMENT Assessment Ruout Gastrointestinal Bleed Date of Service: October 29, 2024 Billing Provider: YING SHAW MD Common Visit Codes: [id number] DISCH DAY >30min SUNNY JAIN RESIDENT October 29, 2024 21:54 YING SHAW MD November 04, 2024 09:07
== END 2024-10-29 21:02 | disposition home or self-care (01) | DRG 244 ==
LOC: EDBD 07:41 → ER 07:45 → OVERFLOW 10:57 → WEST WING 16:37 → TELE-WESTW 10-27 11:01
PROVIDERS: ADMIT Student in an Organized Health Care Education/Training Program; ATTEND Emergency Medicine
PROC: 30233N1 Transfusion of Nonautologous Red Blood Cells into Peripheral Vein, Percutaneous Approach (ICD-10-PCS; principal; 2024-10-27)
PROC: 0DJD8ZZ Inspection of Lower Intestinal Tract, Via Natural or Artificial Opening Endoscopic (ICD-10-PCS; 2024-10-29)
DX: K57.31 Diverticulosis of large intestine without perforation or abscess with bleeding (principal); D50.0 Iron deficiency anemia secondary to blood loss (chronic); I10 Essential (primary) hypertension; F17.210 Nicotine dependence, cigarettes, uncomplicated; K62.89 Other specified diseases of anus and rectum; K64.8 Other hemorrhoids; Z87.11 Personal history of peptic ulcer disease
CPT/HCPCS: 36415; 36430; 45378; 74176; 80048; 80053; 81001; 82270; 85025; 85610; 85730; 86850; 86900; 86901; 86920; 96360; G0378; J2003; J2470; J2704